=== PATIENT | female | born 1975 | race Two or more races ===

== ENCOUNTER 2025-02-04 12:06 | Emergency (ER) | payer MEDICAID ==
[~2025-02-04] VITALS: Ht 154.9 cm; Wt 94.3 kg
--- NOTE | 2025-02-04 13:24 | DVH ---
EXAM: CT HEAD WITHOUT CONTRAST INDICATION: HTN, dizzy TECHNIQUE: CT of the head without intravenous contrast. Radiation Dose : 1. Head: CT Dose: CTDI volume is 52 mGy. Dose-length product is 843.9 mGy*cm The dose indicators for CT are the volume Computed Tomography (CT) Dose Index (CTDIvol) and the Dose Length Product (DLP), and are measured in units of mGy and mGy-cm, respectively. These indicators are not patient dose, but values generated from the CT scanner acquisition factors. The report includes radiation exposure data for exposures received during this examination. COMPARISON: None FINDINGS: There is no evidence of acute intracranial hemorrhage, extra-axial collection, mass effect, midline s hift, herniation or hydrocephalus. The ventricles, sulci and cisterns are age appropriate. The ng-white differentiation is intact. The visualized paranasal sinuses and mastoid air cells are clear. The surrounding soft tissues and osseous structures are unremarkable. IMPRESSION: No acute intracranial abnormality. Radiation optimization: All CT scans at this facility use at least one of these dose optimization gabriel hniques: automated exposure control mA and/or kV adjustment per patient size (includes targeted exam s where dose is matched to clinical indication) or iterative reconstruction.
--- NOTE | 2025-02-04 13:25 | ED.PDOC ---
HPI Comments 49 y/o obese F, with a history of HTN, presents with c/o HTN, today. Patient is a Lithuanian speaker and endorses on being sent from an urgent clinic she was seen at earlier today after being found hypertensive. She reports on, initially, being seen at aforementioned facility for unprovoked onset of headache, face tingling sensation, left-upper back pain, and imbalance symptoms which started this morning, with no prior history of in the past. Patient informs on no recent falls, injuries, ailments, sick contact, stressors, strenuous activities, or any additional relevant history at this time of my assessment. Patient denies any chest pain, shortness of breath, vision changes, fever, chills, dizziness, or other associated symptoms or modifiers at this time. Patient was walked into the ER without any assistance and currently states that she feels generally well. Chief Complaint: High Blood Pressure Time Seen by MD: 12:50 Reviewed Notes: Nurses Notes, Medications, Allergies Allergies: Coded Allergies: NO KNOWN ALLERGIES (Unverified , 02/04/25) Information Source: Patient Mode of Arrival: Ambulatory Severity: Moderate Timing: Hours Duration: Since onset Prehospital treatment: Other (HTN medication) Past Medical History PAST MEDICAL HISTORY: HTN Past Medical History (Other): obesity Surgical History: Denies all surgeries MEDICARE SALES EXECUTIVE History: Denies all MEDICARE SALES EXECUTIVE Hx Family History Family History: Unknown Social History Smoker: Non-Smoker Alcohol: Denies ETOH Use Drugs: Denies Drug Use Lives In: Home All Other Systems: Reviewed and Negative (Comprehensive systems review obtained and negative except for what is stated in the HPI.) Physical Exam General Appearance: No Apparent Distress, Normal HEENT: Normal ENT Inspection, Pharynx Normal, TMs Normal Neck: Full Range of Motion, Non-Tender, Normal, Normal Inspection Respiratory: Chest Non-Tender, Lungs Clear, No Accessory Muscle Use, No Respiratory Distress, Normal Breath Sounds Cardiovascular: No Edema, No JVD, No Murmur, No Gallop, Normal Peripheral Pulses, Regular Rate/Rhythm Breast Exam: Deferred Gastrointestinal: No Organomegaly, Non Tender, No Pulsatile Mass, Normal Bowel Sounds, Soft Genitalia: Deferred Pelvic: Deferred Rectal: Deferred Extremities: No calf tenderness, Normal capillary refill, Normal inspection, Normal range of motion, Non-tender, No pedal edema Musculoskeletal : Apperance: Normal Neurologic: Alert, fleet administrator II-XII nml as Tested, No Motor Deficits, Normal Affect, Normal Mood, No Sensory Deficits, Other (Cranial nerves 2-12 intact, 5/5 strength to bilateral upper and lower extremities, sensation intact to light touch throughout, normal [id number], no pronator drift, ambulates with a steady gait without assistance, normal heel and toe walk, no dysdiadochokinesia, cranial nerves 2-12 intact, answering questions appropriately) Cerebellar Function: Normal Reflexes: NOT DONE Skin: Dry, Normal Color, Warm Lymphatic: No Adenopathy EKG EKG : Pulse Rate (adult): 62 [place]: Normal Cardiac Rhythm: NSR Block: None Hypertrophy: None ST: Normal Was a procedure done? Was a procedure done?: No CP Differential Dx Differential Diagnosis: Anxiety / Panic Attack, Heart Failure, PSVT, Renal Failure, N/A Differential Diagnosis: HTN Essential, HTN Encephalopathy, Other (HTN emergency ) Differential Diagnosis: Angina, Chest Wall Pain, Myocardial Infarction X-Ray, Labs, Meds, VS Vital Signs Date Time Temp Pulse Resp B/P (MAP) Pulse Ox O2 Delivery O2 Flow Rate FiO2 02/04/25 14:16 66 16 137/84 (101) 95 02/04/25 13:25 62 02/04/25 12:44 62 02/04/25 12:08 98.4 66 20 171/88 (115) 97 98.4 Lab Test 02/04/25 13:02 Range/Units White Blood Count 6.1 4.4-10.8 10^3/uL Red Blood Count 5.31 H 4.0-5.20 10^6/uL Hemoglobin 15.8 12.2-16.2 g/dL Hematocrit 46.5 H 36.0-46.0 % Mean Corpuscular Volume 87.6 80.0-100.0 fL Mean Corpuscular Hemoglobin 29.7 28.0-32.0 pg Mean Corpuscular Hemoglobin Concent 33.9 32.0-36.0 g/dL Red Cell Distribution Width 13.6 11.8-14.3 % Platelet Count 156 140-450 10^3/uL Mean Platelet Volume 10.3 6.9-10.8 fL Neutrophils (%) (Auto) 57.7 37.0-80.0 % Lymphocytes (%) (Auto) 32.8 10.0-50.0 % Monocytes (%) (Auto) 7.2 0.0-12.0 % Eosinophils (%) (Auto) 1.8 0.0-7.0 % Basophils (%) (Auto) 0.5 0.0-2.0 % Neutrophils # (Auto) 3.5 1.6-8.6 10 ^3/uL Lymphocytes # (Auto) 2.0 0.4-5.4 10 ^3/uL Monocytes # (Auto) 0.4 0-1.3 10 ^3/uL Eosinophils # (Auto) 0.1 0-0.8 10 ^3/uL Basophils # (Auto) 0 0-0.2 10 ^3/uL Nucleated Red Blood Cells 0.2 % Sodium Level 144 136-145 mmol/L Potassium Level 4.6 3.5-5.1 mmol/L Chloride Level 110 H 98-107 mmol/L Carbon Dioxide Level 28 20-31 mmol/L Anion Gap 6 5-15 Blood Urea Nitrogen 10 9-23 mg/dL Creatinine 0.81 0.550-1.02 mg/dL Glomerular Filtration Rate Calc 89 >90 mL/min BUN/Creatinine Ratio 12.3 10.0-20.0 Serum Glucose 85 74-106 mg/dL Calcium Level 9.7 8.7-10.4 mg/dL Troponin I High Sensitivity < 3 L </=34 ng/L X-Ray, Labs, Meds, VS Comment 49-year-old female sent here today for evaluation of her hypertension and additional symptoms as above. On arrival to ER, vital signs notable for hypertension with systolic blood pressure in the 170s however that resolved without any interventions on recheck. Physical exam as above without any acute findings including a normal neurologic exam. Labs overall reassuring. Troponin negative. EKG without evidence of acute ischemia. CT head scan without any acute findings. Given patient was overall normal neurologic exam and overall reassuring workup, patient was provided with reassurance and informed of her findings and stated that she felt much better and wanted to go home. I felt that this was appropriate as the patient has a primary care doctor she can follow up within 2-3 days for re-evaluation. I provided the patient was strict return precautions for return of symptoms, headache, numbness, weakness, fevers, nausea/vomiting, chest pain, respiratory distress, or any other new or concerning symptoms. Patient was discharged home in stable condition ambulating with a steady gait without any assistance and in no distress. Time of 1ST Reevaluation: 13:20 Reevaluation 1ST: Improved Time of 2ND Reevaluation: 14:56 Reevaluation 2ND: Resolved Patient Education/Counseling: Diagnosis, Treatment Family Education/Counseling: No Family Present Additional Information Previous medical encounters reviewed: N/A The following tests were ordered, and results were reviewed by me: BMP, CBC, EKG, troponin, CT head w/o contrast Additional Information was gathered from interviewing the following independent historians: N/A I reviewed and agreed with the following test results read by other providers: CT head w/o contrast I discussed treatment and results with medical personnel and: Patient Departure 1 Departure Time of Disposition: 15:20 Impression: Primary Impression: Hypertension Disposition: 01 HOME / SELF CARE / HOMELESS Condition: Stable Critical Care Note Critical Care Time?: No Stability Stability form required: No Heart Score Heart Score: Heart Score Response (Comments) Value History N/A 0 EKG N/A 0 Age N/A 0 Risk Factors N/A 0 Troponin N/A 0 Total 0 FRITZ JENNINGS Feb 04, 2025 13:25 ELADIO PIPER MD Feb 04, 2025 15:21
[2025-02-04 13:40] LABS: Basophils # (auto) 0 10 ^3/uL (0-0.2); Basophils % (auto) 0.5 % (0.0-2.0); Eosinophils # (auto) 0.1 10 ^3/uL (0-0.8); Eosinophils % (auto) 1.8 % (0.0-7.0); Hematocrit 46.5 % (36.0-46.0); Hemoglobin 15.8 g/dL (12.2-16.2); Lymphocytes % (auto) 32.8 % (10.0-50.0); Mean Corpuscular Hemoglobin 29.7 pg (28.0-32.0); Mean Corpuscular Hgb Conc. 33.9 g/dL (32.0-36.0); Mean Corpuscular Volume 87.6 fL (80.0-100.0); Monocytes # (auto) 0.4 10 ^3/uL (0-1.3); Monocytes % (auto) 7.2 % (0.0-12.0); Neutrophils # (auto) 3.5 10 ^3/uL (1.6-8.6); Neutrophils % (auto) 57.7 % (37.0-80.0); Nucleated Red Blood Cells % 0.2 %; Platelet Count (auto) 156 10^3/uL (140-450); Red Blood Cells 5.31 10^6/uL (4.0-5.20); Red Cell Distribution Width 13.6 % (11.8-14.3); White Blood Cell 6.1 10^3/uL (4.4-10.8)
[2025-02-04 13:43] LABS: Potassium 4.6 mmol/L (3.5-5.1); Sodium 144 mmol/L (136-145)
[2025-02-04 13:44] LABS: Anion Gap 6 (5-15); Calcium 9.7 mg/dL (8.7-10.4); Carbon Dioxide 28 mmol/L (20-31)
[2025-02-04 13:49] LABS: BUN/Creatinine Ratio 12.3 (10.0-20.0); Blood Urea Nitrogen 10 mg/dL (9-23); Glucose 85 mg/dL (74-106)
[2025-02-04 13:51] LABS: Chloride 110 mmol/L (98-107)
--- NOTE | 2025-02-04 15:20 | ECG ---
[facility] Test Date: 2025-02-04 Test Time: 12:44:28 Pat Name: SAHIL MEADEDepartment: ER Room: Gender: F Event Host: : 1975 Requested By: ELADIO PIPER Order Number: [id number] Reading MD: Measurements Intervals [place] Rate: 62 P: 58 [place]: 171 QRS: 53 QRSD: 101 T: 60 QT: 450 QTc: 457 Interpretive Statements Sinus rhythm Please click the below link to view image of tracing.
[2025-02-04 16:14] VITALS: BP 143/79; PULSE 64; RESP 18; TEMP 98.6; O2SAT 95
== END 2025-02-04 16:17 | disposition home or self-care (01) ==
LOC: ER 12:06
DX: I10 Essential (primary) hypertension (principal); E66.9 Obesity, unspecified; R51.9 Headache, unspecified
CPT/HCPCS: 36415; 70450; 80048; 84484; 85025; 93005

== ENCOUNTER 2025-06-28 21:52 | Inpatient (IN) | payer MEDICAID ==
[~2025-06-28] VITALS: Ht 152.4 cm; Wt 112.0 kg
--- NOTE | 2025-06-28 23:12 | ED.PDOC ---
HPI Comments 49 year old female presents to the with a chief complaint of chest pain onset 2 days. Patient states she has been experiencing chest pain radiates to back, 06/05, for the past 2 days as well as facial numbness/tingling, headache. For the past 2 weeks, she has been experiencing bilateral feet swelling. Patient mentions she had a CVA about 1 month ago, was hospitalized in [place], was discharged with a prescription of Aspirin and 2 other medications, does not recall which ones. PMHx CVA, HTN, HLD. Denies blurred vision, shortness of breath, fever, chills, abdominal pain, nausea, vomiting, diarrhea. No other symptoms or modifying factors present at this time. Chief Complaint: Chest Pain Time Seen by MD: 23:00 Reviewed Notes: Medications, Allergies Allergies: Coded Allergies: NO KNOWN ALLERGIES (Unverified , 02/04/25) Information Source: Patient Mode of Arrival: Ambulatory Severity: Moderate Timing: Days Duration: Since onset Prehospital treatment: None Location: Chest (L) Radiation: Back Quality: Pressure Onset: At Rest Cardiac Risk Factors: Hyperlipidemia, HTN PE Risk Factors: None History of: Aspirin Modifying Factors: Nothing Associated Signs and Symptoms: Back Pain Past Medical History PAST MEDICAL HISTORY: CVA, High Lipids, HTN Surgical History: Denies all surgeries SIDE STITCHER History: Denies all SIDE STITCHER Hx Family History Family History: Unknown Social History Smoker: Non-Smoker Alcohol: Denies ETOH Use Drugs: Denies Drug Use Lives In: Home Constitutional: denies: chills, diaphoresis, fatigue, fever, malaise, sweats, weakness, others EENTM: denies: blurred vision, double vision, ear bleeding, ear discharge, ear drainage, ear pain, ear ringing, eye pain, eye redness, hearing loss, mouth pain, mouth swelling, nasal discharge, nose bleeding, nose congestion, nose pain, photophobia, tearing, throat pain, throat swelling, voice changes, others Respiratory: denies: cough, hemoptysis, orthopnea, SOB at rest, shortness of breath, SOB with excertion, stridor, wheezing, others Cardiovascular: reports: chest pain; denies: dizzy spells, diaphoresis, Dyspnea on exertion, edema, irregular heart beat, left arm pain, lightheadedness, palpitations, PND, syncope, others Gastrointestinal: denies: abdomen distended, abdominal pain, blood streaked bowels, constipated, diarrhea, dysphagia, difficulty swallowing, hematemesis, melena, nausea, poor appetite, poor fluid intake, rectal bleeding, rectal pain, vomiting, others Genitourinary: denies: abnormal vagina bleeding, burning, dyspareunia, dysuria, flank pain, frequency, hematuria, incontinence, pain, , vagina discharge, urgency, others Neurological: reports: headache; denies: dizziness, fainting, left sided numbness, left sided weakness, numbness, paresthesia, pre-existing deficit, right sided numbness, right sided weakness, seizure, speech problems, tingling, tremors, weakness, others Musculoskeletal: reports: back pain, others (BLE swelling); denies: gout, joint pain, joint swelling, muscle pain, muscle stiffness, neck pain Integumetry: denies: bruises, change in color, change in hair/nails, dryness, laceration, lesions, lumps, rash, wounds, others Allergic/Immunocompromised: denies: Difficulty Healing, Frequent Infections, Hives, Itching, others Hematologic/Lymphatic: denies: anemia, blood clots, easy bleeding, easy bruising, swollen glands, others Endocrine: denies: excessive hunger, excessive sweating, excessive thirst, excessive urination, flushing, intolerance to cold, intolerance to heat, unexplained weight gain, unexplained weight loss, others Psychiatric: denies: anxiety, bipolar disorder, depression, hopeless, panic disorder, schizophrenia, sleepless, suicidal, others All Other Systems: Reviewed and Negative Physical Exam General Appearance: Normal HEENT: Normal ENT Inspection, Pharynx Normal, TMs Normal Neck: Full Range of Motion, Non-Tender, Normal, Normal Inspection Respiratory: Chest Non-Tender, Lungs Clear, No Accessory Muscle Use, No Respiratory Distress, Normal Breath Sounds Cardiovascular: No Edema, No JVD, No Murmur, No Gallop, Normal Peripheral Pulses, Regular Rate/Rhythm Breast Exam: Deferred Gastrointestinal: No Organomegaly, Non Tender, No Pulsatile Mass, Normal Bowel Sounds, Soft Genitalia: Deferred Pelvic: Deferred Rectal: Deferred Extremities: No calf tenderness, Normal capillary refill, Normal inspection, Normal range of motion, Non-tender, No pedal edema Musculoskeletal : Apperance: Normal Neurologic: Alert, field auditor II-XII nml as Tested, No Motor Deficits, Normal Affect, Normal Mood, No Sensory Deficits Cerebellar Function: Normal Reflexes: Normal Skin: Dry, Normal Color, Warm Lymphatic: No Adenopathy Was a procedure done? Was a procedure done?: No CP Differential Dx Differential Diagnosis: MAT, UT, PAC's Differential Diagnosis: HTN Essential, HTN Accelerated Differential Diagnosis: Gastritis, Myocardial Infarction, Pericarditis X-Ray, Labs, Meds, VS Vital Signs Date Time Temp Pulse Resp B/P (MAP) Pulse Ox O2 Delivery O2 Flow Rate FiO2 06/28/25 23:04 69 06/28/25 22:17 98.8 73 16 150/89 94 98.8 06/28/25 22:07 70 Lab Test 06/29/25 00:20 06/28/25 23:38 Range/Units Troponin I High Sensitivity < 3 L < 3 L </=34 ng/L White Blood Count 7.5 4.4-10.8 10^3/uL Red Blood Count 5.11 4.0-5.20 10^6/uL Hemoglobin 15.3 12.2-16.2 g/dL Hematocrit 43.7 36.0-46.0 % Mean Corpuscular Volume 85.6 80.0-100.0 fL Mean Corpuscular Hemoglobin 30.0 28.0-32.0 pg Mean Corpuscular Hemoglobin Concent 35.1 32.0-36.0 g/dL Red Cell Distribution Width 13.4 11.8-14.3 % Platelet Count 146 140-450 10^3/uL Mean Platelet Volume 9.0 6.9-10.8 fL Neutrophils (%) (Auto) 61.0 37.0-80.0 % Lymphocytes (%) (Auto) 25.9 10.0-50.0 % Monocytes (%) (Auto) 9.7 0.0-12.0 % Eosinophils (%) (Auto) 2.4 0.0-7.0 % Basophils (%) (Auto) 1.0 0.0-2.0 % Neutrophils # (Auto) 4.6 1.6-8.6 10 ^3/uL Lymphocytes # (Auto) 1.9 0.4-5.4 10 ^3/uL Monocytes # (Auto) 0.7 0-1.3 10 ^3/uL Eosinophils # (Auto) 0.2 0-0.8 10 ^3/uL Basophils # (Auto) 0.1 0-0.2 10 ^3/uL Nucleated Red Blood Cells 0.0 % Sodium Level 142 136-145 mmol/L Potassium Level 3.8 3.5-5.1 mmol/L Chloride Level 107 98-107 mmol/L Carbon Dioxide Level 27 20-31 mmol/L Anion Gap 8 5-15 Blood Urea Nitrogen 10 9-23 mg/dL Creatinine 0.65 0.550-1.02 mg/dL Glomerular Filtration Rate Calc 109 >90 mL/min BUN/Creatinine Ratio 15.4 10.0-20.0 Serum Glucose 112 H 74-106 mg/dL Calcium Level 8.6 L 8.7-10.4 mg/dL Time of 1ST Reevaluation: 23:30 Reevaluation 1ST: Unchanged Patient Education/Counseling: Diagnosis, Treatment, Prognosis Family Education/Counseling: No Family Present SEPSIS Sepsis Screen Date sepsis recognized/suspect: Jun 28, 2025 Time Sepsis recognized/suspect: 2220 Recent Procedure: No On Antibiotic Therapy: No Respiratory Rate >20: No Heart Rate >90: No Temp<36 C (96.8 F) or >38.3 C: No SBP <90 or MAP <65 mmHG: No New Acute Mental Status Change: No Is the patient on CPAP, BIPAP,: No Physician Orders Electrocardigram (06/28/25 22:13) Electrocardigram (06/28/25 23:13) Electrocardigram (06/29/25 01:13) Chest Portable (06/28/25 22:49) Troponin-I Hs (06/29/25 01:49) Vital Signs Date Time Temp Pulse Resp B/P (MAP) Pulse Ox O2 Delivery O2 Flow Rate FiO2 06/28/25 23:04 69 06/28/25 22:17 98.8 73 16 150/89 94 98.8 06/28/25 22:07 70 Laboratory Tests Test 06/28/25 23:38 White Blood Count 7.5 10^3/uL (4.4-10.8) Departure 1 Departure Time of Disposition: 00:48 (Patient presented with chest pain that was concerning for possible STEMI, ACS, PE, Pneumonia, Muscle Strain, COPD, Dissection. Data: 1. I ordered and reviewed the result of at least 3 labs including a CBC, BMP, and Troponin. 2. I independently interpreted the following tests: EKG which shows sinus arrhythmia and Chest X-ray which shows benign chest.Risk:This patient has a high risk of morbidity due to further diagnostic testing or treatment and may suffer from an acute cardiac or respiratory disorder. Workup reveals concern for ACS and patient should be admitted for further workup and possible expert consultation. ) Impression: Primary Impression: Acute chest pain Additional Impression: Shortness of breath Disposition: ADMITTED INPATIENT Admit to: Med Surg Condition: Serious Critical Care Note Critical Care Time?: Yes Critical care comment: Acute chest pain Authorized and Performed by: Merced Daniels MD Total critical care time: Approximately 36 minutes Due to a high probability of clinically significant, life threatening deterioration, the patient required my highest level of preparedness to intervene emergently and I personally spent this critical care time directly and personally managing the patient. This critical care time included obtaining a history; examining the patient; pulse oximetry; ordering and review of studies; arranging urgent treatment with development of a management plan; evaluation of patient's response to treatment; frequent reassessment; and, discussions with other providers. This critical care time was performed to assess and manage the high probability of imminent, life-threatening deterioration that could result in multi-organ failure. It was exclusive of separately billable procedures and treating other patients and teaching time. Please see my other sections and the rest of the note for further information on patient assessment and treatment. Stability Stability form required: No Heart Score Heart Score: Heart Score Response (Comments) Value History Moderate Suspicious 1 EKG Repolarization Disturb 1 Age 45-64 1 Risk Factors 1 or 2 risk factors 1 Troponin 1-2 x's Normal limit 1 Total 5 I personally scribed for MERCED DANIELS MD ([email or web address]) on 06/28/25 at 23:12. Electronically submitted by Luana Leon ([email or web address]). MERCED DANIELS MD Jun 28, 2025 23:12
--- NOTE | 2025-06-28 23:19 | DVH ---
CLINICAL HISTORY: cp TECHNIQUE: Single view of the chest was obtained. COMPARISON: XY CHEST XRAY 1 VIEW on DOS: 01/28/23 FINDINGS: The heart size and pulmonary vasculature are normal. The lungs are clear. IMPRESSION: NO ACUTE CARDIOPULMONARY PROCESS.
[2025-06-28 23:51] LABS: Hematocrit 43.7 % (36.0-46.0); Hemoglobin 15.3 g/dL (12.2-16.2); Mean Corpuscular Hemoglobin 30.0 pg (28.0-32.0); Mean Corpuscular Volume 85.6 fL (80.0-100.0); Nucleated Red Blood Cells % 0.0 %
[2025-06-29 00:04] LABS: Potassium 3.8 mmol/L (3.5-5.1); Sodium 142 mmol/L (136-145)
[2025-06-29 00:05] LABS: Anion Gap 8 (5-15); Carbon Dioxide 27 mmol/L (20-31)
[2025-06-29 00:06] LABS: Calcium 8.6 mg/dL (8.7-10.4); Chloride 107 mmol/L (98-107)
[2025-06-29 00:10] LABS: BUN/Creatinine Ratio 15.4 (10.0-20.0); Blood Urea Nitrogen 10 mg/dL (9-23)
[2025-06-29 00:18] LABS: Glucose 112 mg/dL (74-106)
[2025-06-29] MEDS ORDERED: MORPHINE SULFATE INJ 2 MG/ml SYRG IV PRN (01:30)
[2025-06-29] MEDS ORDERED: NITROGLYCERIN 0.4 MG SL TAB SL PRN (01:30)
[2025-06-29] MEDS ORDERED: ONDANSETRON HCL 4 MG/2 ML VIAL IV PRN (01:30)
[2025-06-29] MEDS ORDERED: DOCUSATE SOD 100 MG CAP PO PRN (01:30)
[2025-06-29 01:59] LABS: INR 0.93 (0.9-1.15); Prothrombin Time 9.9 sec (9.3-11.8)
[2025-06-29 02:01] LABS: Alanine Aminotransferase 33.0 U/L (7-40); Albumin 3.8 g/dL (3.2-4.8); Alkaline Phosphatase 109.0 U/L (46-116); Bilirubin, Direct 0.1 mg/dL (<0.3); Bilirubin, Total 0.6 mg/dL (0.2-1.0); Cholesterol 199.0 mg/dL (< 200); HDL Cholesterol 54.0 mg/dL (40-59); Total Protein 6.7 g/dL (5.7-8.2)
[2025-06-29 02:04] LABS: Triglycerides 286.0 mg/dL (< 150)
--- NOTE | 2025-06-29 02:40 | ECG ---
[facility] Test Date: 2025-06-28 Test Time: 22:07:26 Pat Name: SAHIL MEADEDepartment: ED Room: 0251T Gender: F Profiling Machine Operator: ANGELIKA : 1975 Requested By: ELENA SANTOS Order Number: [id number] Reading MD: Connor Chavez Measurements Intervals [place] Rate: 70 P: 62 [place]: 158 QRS: 64 QRSD: 93 T: 81 QT: 431 QTc: 466 Interpretive Statements Sinus rhythm Electronically Signed On 06-30-2025 17:01:45 PDT by Connor Chavez Please click the below link to view image of tracing.
[2025-06-29] MEDS ORDERED: ATOR20TA50 PO (03:41)
[2025-06-29] MEDS ORDERED: GABA-1250 PO (03:41)
[2025-06-29] MEDS ORDERED: ASPI-325 PO (03:41)
[2025-06-29] MEDS ORDERED: LOSA-535 PO (03:41)
[2025-06-29] MEDS ORDERED: AMLO1TAB23 PO (03:41)
[2025-06-29] MEDS ORDERED: CHLO50TA PO (03:41)
[2025-06-29] MEDS ORDERED: ATOR-47 PO (03:41)
[2025-06-29] MEDS ORDERED: PANT40T PO (03:41)
[2025-06-29 05:15] VITALS: BP 150/80; PULSE 60; RESP 17; TEMP 97.5; O2SAT 94
[2025-06-29 05:33] LABS: Hematocrit 43.7 % (36.0-46.0); Hemoglobin 15.3 g/dL (12.2-16.2); Mean Corpuscular Hemoglobin 30.2 pg (28.0-32.0); Mean Corpuscular Volume 86.4 fL (80.0-100.0); Nucleated Red Blood Cells % 0.1 %
[2025-06-29 05:39] LABS: Alanine Aminotransferase 30 U/L (7-40); Alkaline Phosphatase 106 U/L (46-116); Calcium 8.8 mg/dL (8.7-10.4); Carbon Dioxide 27 mmol/L (20-31)
[2025-06-29 05:40] LABS: Albumin 4.2 g/dL (3.2-4.8); Anion Gap 7 (5-15); BUN/Creatinine Ratio 20.3 (10.0-20.0); Bilirubin, Total 0.6 mg/dL (0.2-1.0); Blood Urea Nitrogen 14 mg/dL (9-23); Chloride 108 mmol/L (98-107); Glucose 100 mg/dL (74-106); Potassium 4.2 mmol/L (3.5-5.1); Sodium 142 mmol/L (136-145); Total Protein 7.2 g/dL (5.7-8.2)
[2025-06-29] MEDS ORDERED: VILA40TA2 PO (08:38)
[2025-06-29 09:00] VITALS: BP 135/74; PULSE 64; RESP 20; TEMP 97.2; O2SAT 94
--- NOTE | 2025-06-29 09:21 | DVHHPRES ---
History of Present Illness Resident Creating Document: MAIK MEI RESIDENT History of Present Illness Avani Bhandari is a Occitan-speaking 49-year-old female with past medical history of hypertension, hyperlipidemia, history of TIA, who came to the ED with chief complaints of 8/10 chest pain which is intermittent, radiating to the back since the past 2 days as well as facial numbness, tingling associated with headache and 2 weeks of leg swelling which is painful. Denies any blurred vision, nausea, vomiting, diarrhea, abdominal pain, fever chills, shortness of breath. States that she had a CVA about 1-1/2 month ago. She also complained of bad taste in her mouth in the morning, heartburn. Echo ordered. Patient admitted for further for further management. Past surgical history: Denies Family history: Reviewed noncontributory Personal history: Denies smoking, drinking, drug use Lives with: Family PCP: Dr. Washburn Review of Systems Constitutional: Yes: Chills, Sweats; No: Fever, Weakness, Malaise, Other Eyes: No: Pain, Vision change, Conjunctivae inflammation, Eyelid inflammation, Other, Redness ENT: No: Ear pain, Ear discharge, Nose pain, Nose discharge, Nose congestion, Mouth pain, Mouth swelling, Throat pain, Throat swelling, Other Respiratory: Shortness of breath; No: Cough, Dry, SOB with excertion, Wheezing, Hemoptysis, Pleuritic Pain, Sputum, Wheezing, Other Cardiovascular: Chest Pain; No: Palpitations, Orthopnea, Paroxysmal Noc. Dyspnea, Edema, Lt Headedness, Other Gastrointestinal: No: Nausea, Vomiting, Abdominal Pain, Diarrhea, Constipation, Melena, Hematochezia, Other Genitourinary: No Dysuria, No Frequency, No Incontinence, No Hematuria, No Retention, No Other Musculoskeletal: No: other, neck pain, shoulder pain, arm pain, back pain, hand pain, leg pain, foot pain Skin: No: Rash, Lesions, Jaundice, Bruising, Other Neurological: No: Weakness, Numbness, Incoordination, Change in speech, Confusion, Seizures, Other Allergies: Coded Allergies: NO KNOWN ALLERGIES (Unverified , 02/04/25) Medications Current Medications Medications Dose Ordered Sig/Justina Route Start Time Stop Time Status Last Admin Dose Admin Acetaminophen/ Hydrocodone Bitart 1 tab Q4HP PRN PO 06/29/25 01:30 Ondansetron HCl 4 mg Q4HP PRN IV 06/29/25 01:30 Docusate Sodium 100 mg BIDPRN PRN PO 06/29/25 01:30 Nitroglycerin 0.4 mg Q5MINP PRN SL 06/29/25 01:30 Aspirin 81 mg DAILY PO 06/29/25 10:00 UNV Atorvastatin Calcium 40 mg HS PO 06/29/25 22:00 UNV Amlodipine Besylate 10 mg DAILY PO 06/29/25 08:45 UNV Buspirone HCl 15 mg Q12HR PO 06/29/25 10:00 UNV Loratadine 10 mg HS PO 06/29/25 22:00 UNV Patient Own Medication 1 DAILY PO 06/29/25 10:00 UNV Exam Vital Signs Vital Signs Date Time Temp Pulse Resp B/P (MAP) Pulse Ox O2 Delivery O2 Flow Rate FiO2 06/29/25 05:15 97.5 60 17 150/80 (103) 94 97.5 Exam General: Patient alert and oriented in person, place and time. Patient following commands. HEENT: Normocephalic, atraumatic, moist mucous membranes Respiratory/pulmonary: Clear lungs bilaterally, vesicular murmurs present in almost all lung ortiz, no associated crackles or wheezes. Cardiovascular: Chest tenderness in substernal area on palpation, radiating to the back Abdomen: Abdomen nondistended, there is no pain to palpation in any of the abdominal quadrants, no palpable masses. Extremities: There is no peripheral edema present at the lower extremities. Peripheral Pulses: 3+ Radial (R). 3+ Radial (L). 3+ Dorsalis pedis (R). 3+ Dorsalis pedis(L) Skin: No rashes or pruritus, there is no sacral edema present at this time. Neurological: Intact cranial nerves with no focal neurologic deficits Labs/Xrays Labs Test 06/29/25 04:51 06/29/25 00:20 06/28/25 23:38 Range/Units White Blood Count 7.2 4.4-10.8 10^3/uL Red Blood Count 5.06 4.0-5.20 10^6/uL Hemoglobin 15.3 12.2-16.2 g/dL Hematocrit 43.7 36.0-46.0 % Mean Corpuscular Volume 86.4 80.0-100.0 fL Mean Corpuscular Hemoglobin 30.2 28.0-32.0 pg Mean Corpuscular Hemoglobin Concent 35.0 32.0-36.0 g/dL Red Cell Distribution Width 13.4 11.8-14.3 % Platelet Count 144 140-450 10^3/uL Mean Platelet Volume 9.5 6.9-10.8 fL Neutrophils (%) (Auto) 59.3 37.0-80.0 % Lymphocytes (%) (Auto) 27.8 10.0-50.0 % Monocytes (%) (Auto) 10.1 0.0-12.0 % Eosinophils (%) (Auto) 2.5 0.0-7.0 % Basophils (%) (Auto) 0.3 0.0-2.0 % Neutrophils # (Auto) 4.3 1.6-8.6 10 ^3/uL Lymphocytes # (Auto) 2.0 0.4-5.4 10 ^3/uL Monocytes # (Auto) 0.7 0-1.3 10 ^3/uL Eosinophils # (Auto) 0.2 0-0.8 10 ^3/uL Basophils # (Auto) 0 0-0.2 10 ^3/uL Nucleated Red Blood Cells 0.1 % Sodium Level 142 136-145 mmol/L Potassium Level 4.2 3.5-5.1 mmol/L Chloride Level 108 H 98-107 mmol/L Carbon Dioxide Level 27 20-31 mmol/L Anion Gap 7 5-15 Blood Urea Nitrogen 14 9-23 mg/dL Creatinine 0.69 0.550-1.02 mg/dL Glomerular Filtration Rate Calc 107 >90 mL/min BUN/Creatinine Ratio 20.3 H 10.0-20.0 Serum Glucose 100 74-106 mg/dL Calcium Level 8.8 8.7-10.4 mg/dL Total Bilirubin 0.6 0.2-1.0 mg/dL Aspartate Amino Transferase (AST) 32 13-40 U/L Alanine Aminotransferase (ALT) 30 7-40 U/L Alkaline Phosphatase 106 46-116 U/L C-Reactive Protein High Sensitivity 0.43 <1.0 mg/dL Total Protein 7.2 5.7-8.2 g/dL Albumin 4.2 3.2-4.8 g/dL Troponin I High Sensitivity < 3 L </=34 ng/L Prothrombin Time 9.9 9.3-11.8 sec Prothrombin Time INR 0.93 0.9-1.15 Direct Bilirubin 0.1 <0.3 mg/dL B-Type Natriuretic Peptide 21.36 0-100 pg/mL Triglycerides Level 286 H < 150 mg/dL Cholesterol Level 199 < 200 mg/dL LDL Cholesterol 120 H < 100 mg/dL HDL Cholesterol 54 40-59 mg/dL SEPSIS Sepsis Screen Date sepsis recognized/suspect: Jun 28, 2025 Time Sepsis recognized/suspect: 2220 Recent Procedure: No On Antibiotic Therapy: No Respiratory Rate >20: No Heart Rate >90: No Temp<36 C (96.8 F) or >38.3 C: No SBP <90 or MAP <65 mmHG: No New Acute Mental Status Change: No Is the patient on CPAP, BIPAP,: No Physician Orders Admit (06/29/25 01:22) Allergies (06/29/25:22) Code Status (06/29/25 01:22) Hydrocodone-Acet 5/325mg Tab ([place] 5/32 (06/29/25 01:30) Ondansetron Hcl (Zofran) (06/29/25 01:30) Docusate Sodium Capsule (Colace Capsule) (06/29/25 01:30) Npo (Nothing By Mouth) Diet (06/29/25 Breakfast) Condition: Serious (06/29/25 01:22) Bedrest With Bathroom Privileg (06/29/25:22) Nitroglycerin Sublingual (Ntrostat Subli (06/29/25 01:30) Oxygen By Nasal Cannula (06/29/25:22) Stat Ekg For Chest Pain (06/29/25:22) Notify Md Of Changes From Base (06/29/25:22) Communications Administrator For 24 Hours (06/29/25:22) Emergency Dysrhythmia Protocol (06/29/25:22) Rhythm Strips Once Every Shift (06/29/25:22) Hemoglobin A1c (06/29/25 08:13) Thyroid Stimulating Hormone (06/29/25 08:13) Vitamin B12 (06/29/25 08:13) Vitamin D, 25-Hydroxy (06/29/25 08:13) Folate (Folic Acid) (06/29/25 08:13) Drug Screen (06/29/25 08:21) Urinalysis (06/29/25 08:21) Echo 2d Mode Cardiac Dop (06/29/25 08:21) Erythrocyte Sedimentation Rate (06/29/25 08:21) Communication Order (06/29/25 08:21) Aspirin Tablet (06/29/25 10:00) Atorvastatin (Lipitor) (06/29/25 22:00) Amlodipine Tablet (Norvasc Tablet) (06/29/25 08:45) Buspirone Hcl Tablet (Buspar Tablet) (06/29/25 10:00) Loratadine Tablet (Claritin Tablet) (06/29/25 22:00) Covid19 Antigen Beverley (06/29/25 ) Rapid Influenza A&B (06/29/25 08:35) Patients Own Medication (06/29/25 10:00) Vital Signs Date Time Temp Pulse Resp B/P (MAP) Pulse Ox O2 Delivery O2 Flow Rate FiO2 06/29/25 05:15 97.5 60 17 150/80 (103) 94 97.5 06/29/25 01:08 68 Laboratory Tests Test 06/28/25 23:38 06/29/25 04:51 White Blood Count 7.5 10^3/uL (4.4-10.8) 7.2 10^3/uL (4.4-10.8) Assessment/Plan Assessment/Plan # chest pain, rule out ACS # history of possible CHF : Ordered echo, ESR , CRP # resistant hypertension: Amlodipine + losartan + chlorthalidone # questionable CAD # history of TIA: Continue home meds # history of dyslipidemia: Continue atorvastatin # mild cardiomegaly: Echo ordered # grade 3 obesity : BMI 43.5 on GLP 1 inhibitor # seasonal allergy # History of anxiety disorder: Continue home meds #? ADHD #? Schizophrenia # Vitamin-D deficiency PPI prophylaxis: Pantoprazole 40 mg DVT prophylaxis: not indicated Goals of care addressed with the patient for more than 27 minutes: Full code status Case discussed with Dr. Mc , patient and nurse Plan discussed with: Patient My Orders Orders - MAIK MEI RESIDENT Procedure Category Date Status Time Admit ADMIT 06/29/25 Transmitted 01:22 Allergies YONG 06/29/25 In Process 01:22 Code Status CODE 06/29/25 Transmitted 01:22 Hydrocodone-Acet PHA 06/29/25 In Process 5/325mg Tab ([place] 01:30 Ondansetron Hcl PHA 06/29/25 In Process (Zofran) 01:30 Docusate Sodium PHA 06/29/25 In Process Capsule (Colace 01:30 Npo (Nothing By DIET 06/29/25 Transmitted Mouth) Diet Breakfast Condition: Serious YONG 06/29/25 In Process 01:22 Bedrest With Bathroom [facility] 06/29/25 In Process Privileg 01:22 Nitroglycerin PHA 06/29/25 In Process Sublingual (Ntrostat 01:30 Oxygen By Nasal RT 06/29/25 Transmitted Cannula 01:22 Stat Ekg For Chest [facility] 06/29/25 In Process Pain 01:22 Notify Md Of Changes [facility] 06/29/25 In Process From Base 01:22 Communications Administrator For [facility] 06/29/25 In Process 24 Hours 01:22 Emergency Dysrhythmia [facility] 06/29/25 In Process Protocol 01:22 Rhythm Strips Once [facility] 06/29/25 In Process Every Shift 01:22 Date of Service: Jun 29, 2025 Billing Provider: DICK MC MD Common Visit Codes: [id number] INP/OBS CARE (HIGH) Secondary Visit Codes: [id number] CARE PLAN 30 MINUTES MAIK MEI RESIDENT Jun 29, 2025 09:21
[2025-06-29] MEDS: VILAZODONE 40 MG PO SCH (10:00)
[2025-06-29] MEDS: ENOXAPARIN SOD 40 MG/0.4 ML SYRINGE SC SCH (10:30)
[2025-06-29] MEDS: PANTOPRAZOLE 40 MG TAB PO SCH (10:33)
--- NOTE | 2025-06-29 10:40 | DVH ---
Bilateral lower extremity venous duplex Clinical History: Bilateral leg swelling, chest pain, shortness of Comparison: None Findings: Duplex Doppler evaluation of the deep venous systems of both lower extremities from the common femora l veins to the popliteal veins including color Doppler and spectral/pulsed waveform analysis was perf ormed. RIGHT SIDE: The common femoral vein demonstrates appropriate compressibility and waveform variability. There is compressibility/patency of the great saphenous vein at the proximal thigh. The femoral vein demonstrates appropriate compressibility and waveform variability. The deep femoral vein demonstrates appropriate compressibility and waveform variability. The popliteal vein demonstrates appropriate compressibility and waveform variability. There is normal compressibility at the tibioperoneal trunk. LEFT SIDE: The common femoral vein demonstrates appropriate compressibility and waveform variability. There is compressibility/patency of the great saphenous vein at the proximal thigh. The femoral vein demonstrates appropriate compressibility and waveform variability. The deep femoral vein demonstrates appropriate compressibility and waveform variability. The popliteal vein demonstrates appropriate compressibility and waveform variability. There is normal compressibility at the tibioperoneal trunk. 3.4 cm left Mcclendon's cyst. IMPRESSION: No right or left femoropopliteal venous thrombosis. If clinical concern/symptoms persist or worsen, short-interval follow-up study is suggested. END IMPRESSION:
[2025-06-29 13:00] VITALS: BP 131/68; PULSE 63; RESP 20; TEMP 97.2; O2SAT 91
--- NOTE | 2025-06-29 14:05 | ECG ---
[facility] Test Date: 2025-06-29 Test Time: 01:08:47 Pat Name: SAHIL MEADEDepartment: [facility] ED Room: 0251T Gender: F Rural Car[employer] Associate: SAMI : 1975 Requested By: ELENA SANTOS Order Number: [id number] Reading MD: Connor Chavez Measurements Intervals [place] Rate: 68 P: 46 NC: 159 QRS: 60 QRSD: 99 T: 71 QT: 374 QTc: 398 Interpretive Statements Sinus rhythm Anteroseptal infarct, age indeterminate ST elevation, consider inferior injury Electronically Signed On 06-30-2025 17:01:59 PDT by Connor Chavez Please click the below link to view image of tracing.
--- NOTE | 2025-06-29 14:05 | ECG ---
[facility] Test Date: 2025-06-28 Test Time: 23:04:31 Pat Name: SAHIL MEADEDepartment: ED Room: 0251T Gender: F [employer] Dipper: SAMI : 1975 Requested By: ELENA SANTOS Order Number: [id number] Reading MD: Connor Chavez Measurements Intervals [place] Rate: 69 P: 62 MT: 162 QRS: 64 QRSD: 94 T: 83 QT: 424 QTc: 455 Interpretive Statements Sinus rhythm Nonspecific T abnormalities, lateral leads Electronically Signed On 06-30-2025 17:01:52 PDT by Connor Chavez Please click the below link to view image of tracing.
[2025-06-29] MEDS: ERGOCALCIFEROL 50,000 UNIT(1.25MG) CAP PO SCH (14:53)
--- NOTE | 2025-06-29 15:26 | DVHPNRES ---
Progress Note Date Seen: Jun 29, 2025 Resident Creating Document: HAZEL MAN RESIDENT Medical Necessity Reason Pt with a Central, PICC or Fol: No Subjective Review of Systems Patient is 49 years old female with a past medical history of hypertension, hyperlipidemia, history of TIA month before came with a complaint of chest pain for 2 days, gradual onset, 8/10, pressure-like, aggravated with movement, patient also endorsed bilateral feet swelling for 2 weeks. On further inquiry patient reported feeling numbness and tingling in the face and bilateral lower extremity. Patient denied any cough, fever, dysuria, diarrhea, acute joint redness. Initial lab workup revealed troponin I with a normal limit. EKG no acute ST elevation. PMH-hypertension, hyperlipidemia, history of TIA PSH- NONE Family history-mom had hypertension Allergy- NKDA Personal History/ Social History- denies all, lives with kids Respiratory denies cough or short of breath or wheezing Gastrointestinal- denies any rectal bleeding, nausea or vomiting Musculoskeletal-denies acute joint swelling or tenderness or redness Neurological- denies acute dysarthria, dysphagia, change in vision Psychiatry- denies depression or SI or HI Skin- denies acute rash or purpura Patient was seen today at bedside. Labs and chart reviewed. Patient reported pain is improving. Patient's chest wall tenderness on palpation. Pending cardiology consult. Objective vital signs Vital Sign Date Time Temp Pulse Resp B/P (MAP) Pulse Ox O2 Delivery O2 Flow Rate FiO2 06/29/25 13:00 97.2 63 20 131/68 (89) 91 97.2 06/29/25 12:45 Room Air* 0 21 Total Intake and Output 06/28/25 06/28/25 06/29/25 15:00 23:00 07:00 Intake Total 0 ml Balance 0 ml medications Current Medications Medications Dose Ordered Sig/Justina Route Start Time Stop Time Status Last Admin Dose Admin Acetaminophen/ Hydrocodone Bitart 1 tab Q4HP PRN PO 06/29/25 01:30 Ondansetron HCl 4 mg Q4HP PRN IV 06/29/25 01:30 Docusate Sodium 100 mg BIDPRN PRN PO 06/29/25 01:30 Nitroglycerin 0.4 mg Q5MINP PRN SL 06/29/25 01:30 Aspirin 81 mg DAILY PO 06/29/25 10:00 06/29/25 10:28 81 MG Atorvastatin Calcium 40 mg HS PO 06/29/25 22:00 Amlodipine Besylate 10 mg DAILY PO 06/29/25 08:45 06/29/25 10:00 10 MG Buspirone HCl 15 mg Q12HR PO 06/29/25 10:00 06/29/25 10:00 15 MG Loratadine 10 mg HS PO 06/29/25 22:00 Patient Own Medication 1 DAILY PO 06/29/25 10:00 Pantoprazole Sodium 40 mg DAILY@0600 PO 06/29/25 10:00 06/29/25 10:33 40 MG Enoxaparin Sodium 40 mg DAILY SC 06/29/25 10:00 06/29/25 10:30 40 MG Ergocalciferol 50,000 unit Q7D PO 06/29/25 10:15 06/29/25 14:53 50,000 UNIT Examination General examination- awake, alert, oriented HEENT- PEERLA, no acute nasal discharge Cardiovascular- chest wall tenderness positive, S1-S2 audible, rate and rhythm regular, no murmur Respiratory- CTAB, no wheeze or rhonchi Gastrointestinal-nontender, bowel sound+. Nondistended Musculoskeletal-no acute joint swelling or tenderness or redness Lower extremity- + bilateral leg edema Neurological- cranial nerves intact, no acute dysarthria or dysphagia Psychiatry- denies depression or SI or HI Skin- no acute rash or purpura laboratory and microbiology Laboratory Tests 06/29/25 04:51 Test 06/29/25 04:51 Range/Units Serum Glucose 100 74-106 mg/dL Problem List/Assessment/Plan Problem List/Assessment/Plan Assessment and plan # acute chest pain, rule out acute coronary syndrome # rule out acute pericarditis/pneumonia # acute chest pain likely due to musculoskeletal pain -CXR no acute cardiopulmonary abnormality -troponin I with a normal limit, BNP with a normal limit -EKG no acute ST elevation, sinus rhythm -aspirin 81 mg p.o. daily -atorvastatin 40 mg p.o. q.h.s. -continue pain medication as prescribed -pending cardiology consult -pending echo 2D # bilateral leg edema -TSH 1.70 -Doppler study negative for DVT -leg elevation -continue conservative management # hypertension -continue amlodipine 10 mg p.o. daily -monitor blood pressure # hyperlipidemia -continue atorvastatin 40 mg p.o. daily # obesity -patient was counseled about the effect of obesity on health, weight reduction, physical activity as tolerated, low-fat diet # vitamin-D deficiency -continue vitamin supplement as prescribed Goals of care, Code status full code; discussed with >15 minutes PUD prophylaxis: Pantoprazole DVT prophylaxis: Lovenox Plan discussed with Dr. Yu , nursing staff, Total time spent on patient evaluation, chart review, assessment and plan, discussion discussion >35 minutes Plan discussed with: Patient, Other (RN) My Orders My Orders Orders - HAZEL MAN Procedure Category Date Status Time Bilat Lower Dvt US 06/29/25 Resulted 09:33 Transfer Orders XFER 06/29/25 Transmitted 09:34 Pantoprazole Tablet PHA 06/29/25 In Process (Protonix Tablet) 10:00 Enoxaparin Sodium PHA 06/29/25 In Process (Lovenox) 10:00 Ergocalciferol PHA 06/29/25 In Process (Vitamin D 50,000 10:15 * Cardiology Consult CONS 06/29/25 Transmitted 11:49 Date of Service: Jun 29, 2025 Billing Provider: KETURAH NOLAN MD Common Visit Codes: [id number] INP/OBS CARE(HIGH) HAZEL MAN Jun 29, 2025 15:26 KETURAH NOLAN MD Jul 04, 2025 00:49
[2025-06-29 17:00] VITALS: BP 145/75; PULSE 67; RESP 18; TEMP 97.2; O2SAT 94
--- NOTE | 2025-06-29 17:37 | DVHINCON2 ---
Date Seen: Jun 29, 2025 Referring Physician MD Parviz resident Reason for Consultation Chest pain and shortness of breath History of Present Illness This is a Tanzanian-speaking 49-year-old female patient who presents to emergency room with chief complaint of chest pain and shortness of breath. The patient reports symptoms began one day prior to emergency room arrival. She describes the chest pain as unprovoked, constant, pressure-like in nature, substernal with radiation to her mid upper back. Associated symptoms include shortness of breath. She denies any alleviating or aggravating factors. Initial twelve lead electrocardiogram reveals normal sinus rhythm with nonspecific ST segment changes to lateral leads. Troponin levels have been negative. Significant past medical history includes hypertension, dyslipidemia, TIA, and obesity. The patient denies any previous cardiac workup. The patient reports significant c ardiac history within the family including her mother and sister with coronary artery disease. Past Medical History Past medical history reviewed. No other significant than mentioned above. Past Surgical History Denies any previous surgeries Family History: Cerebrovascular accident (CVA) G8 MOTHER Hypercholesterolemia G8 MOTHER Hypertension G8 MOTHER Family History Family history reviewed. Social History Denies the use of tobacco, alcohol or illicit drugs. Allergies: Coded Allergies: NO KNOWN ALLERGIES (Unverified , 02/04/25) Home Meds Reported Medications Vilazodone HCl (Vilazodone Hydrochloride) 40 Mg Tab, 1 PO 06/29/25 Atorvastatin Calcium (ATORVASTATIN CALCIUM) 80 Mg Tab, 1 TAB PO DAILY 06/29/25 Chlorthalidone (Chlorthalidone) 50 Mg Tab, 1 TAB PO DAILY 06/29/25 Losartan Potassium (Losartan Potassium) 100 Mg Tab, 1 TAB PO DAILY 06/29/25 Pantoprazole Sodium Sesquihydr (Pantoprazole Sodium) 40 Mg Tab, 1 TAB PO DAILY 06/29/25 Gabapentin (Gabapentin) 300 Mg Cap, 1 CAP PO DAILY 06/29/25 Aspirin (Aspirin Low Dose) 81 Mg Tab, 1 TAB PO DAILY 06/29/25 Amlodipine Besylate (Amlodipine Besylate) 10 Mg Tab, 1 TAB PO DAILY 06/29/25 Atorvastatin Calcium (ATORVASTATIN CALCIUM) 20 Mg Tab, 1 TAB PO DAILY 06/29/25 Home Meds Home medications reviewed. Current Medications Current Medications Medications (Trade) Dose Ordered Sig/Justina Route PRN Reason Start Time Stop Time Status Last Admin Acetaminophen/ Hydrocodone Bitart ([place] 5/325MG Tab) 1 tab Q4HP PRN PO MODERATE PAIN (4-6 PAIN SCALE) 06/29/25 01:30 Ondansetron HCl (Zofran) 4 mg Q4HP PRN IV NAUSEA / VOMITING 06/29/25 01:30 Docusate Sodium (Colace Capsule) 100 mg BIDPRN PRN PO FOR CONSTIPATION 06/29/25 01:30 Nitroglycerin (Ntrostat Sublingual) 0.4 mg Q5MINP PRN SL FOR CHEST PAIN 06/29/25 01:30 Morphine Sulfate 2 mg Q30M PRN IV FOR CHEST PAIN 06/29/25 01:30 06/29/25 04:27 DC Aspirin 81 mg DAILY PO 06/29/25 10:00 06/29/25 10:28 Atorvastatin Calcium (Lipitor) 40 mg HS PO 06/29/25 22:00 Amlodipine Besylate (Norvasc Tablet) 10 mg DAILY PO 06/29/25 08:45 06/29/25 10:00 Buspirone HCl (Buspar Tablet) 15 mg Q12HR PO 06/29/25 10:00 06/29/25 10:00 Loratadine (Claritin Tablet) 10 mg HS PO 06/29/25 22:00 Patient Own Medication 1 DAILY PO 06/29/25 10:00 Pantoprazole Sodium (Protonix Tablet) 40 mg DAILY@0600 PO 06/29/25 10:00 06/29/25 10:33 Enoxaparin Sodium (Lovenox) 40 mg DAILY SC 06/29/25 10:00 06/29/25 10:30 Ergocalciferol (Vitamin D 50,000 Unit) 50,000 unit Q7D PO 06/29/25 10:15 06/29/25 14:53 Review of Systems Constitutional: No symptom reported Ears, Nose, & Throat: No symptom reported Eyes: No symptom reported Neurological: No symptoms reported Pulmonary/Respiratory: Shortness of breath Cardiovascular: Chest pain Gastrointestinal: No symptom reported Genitourinary: No symptom reported Musculoskeletal: No symptom reported Skin: No symptom reported Psychiatric: No symptom reported Endocrine: No symptom reported Hematologic/Lymphatic: No symptom reported Vital Signs Vital Signs Date Time Temp Pulse Resp B/P (MAP) Pulse Ox O2 Delivery O2 Flow Rate FiO2 06/29/25 17:00 97.2 67 18 145/75 (98) 94 97.2 06/29/25 12:45 Room Air* 0 21 Physical Exam General Appearance: Cooperative. Well-developed. Well-nourished. No acute distress. Pulmonary/Respiratory: Clear, bilateral breaths sounds. Cardiovascular/Chest: Regular rate and rhythm. Peripheral Pulses: 2+ Radial (R). 2+ Radial (L). 2+ Pedal (R). 2+ Pedal (L) Abdominal Exam: Normal bowel sounds. Ankle Exam: 3 +pitting edema Lower extremities: 3+ pitting edema Neuro/Mental Status: A/OX4, coherent. Thoughts/Psych: Normal thought pattern. Appropriate mood and affect. Good judgment and insight. Appearance: No acute distress. Skin Exam: Normal inspection. Normal color. Warm and dry. Labs/Diagnostic Data Labs Test 06/29/25 04:51 06/29/25 00:20 06/28/25 23:38 Range/Units White Blood Count 7.2 4.4-10.8 10^3/uL Red Blood Count 5.06 4.0-5.20 10^6/uL Hemoglobin 15.3 12.2-16.2 g/dL Hematocrit 43.7 36.0-46.0 % Mean Corpuscular Volume 86.4 80.0-100.0 fL Mean Corpuscular Hemoglobin 30.2 28.0-32.0 pg Mean Corpuscular Hemoglobin Concent 35.0 32.0-36.0 g/dL Red Cell Distribution Width 13.4 11.8-14.3 % Platelet Count 144 140-450 10^3/uL Mean Platelet Volume 9.5 6.9-10.8 fL Neutrophils (%) (Auto) 59.3 37.0-80.0 % Lymphocytes (%) (Auto) 27.8 10.0-50.0 % Monocytes (%) (Auto) 10.1 0.0-12.0 % Eosinophils (%) (Auto) 2.5 0.0-7.0 % Basophils (%) (Auto) 0.3 0.0-2.0 % Neutrophils # (Auto) 4.3 1.6-8.6 10 ^3/uL Lymphocytes # (Auto) 2.0 0.4-5.4 10 ^3/uL Monocytes # (Auto) 0.7 0-1.3 10 ^3/uL Eosinophils # (Auto) 0.2 0-0.8 10 ^3/uL Basophils # (Auto) 0 0-0.2 10 ^3/uL Nucleated Red Blood Cells 0.1 % Erythrocyte Sedimentation Rate 8 0-20 mm/hr Sodium Level 142 136-145 mmol/L Potassium Level 4.2 3.5-5.1 mmol/L Chloride Level 108 H 98-107 mmol/L Carbon Dioxide Level 27 20-31 mmol/L Anion Gap 7 5-15 Blood Urea Nitrogen 14 9-23 mg/dL Creatinine 0.69 0.550-1.02 mg/dL Glomerular Filtration Rate Calc 107 >90 mL/min BUN/Creatinine Ratio 20.3 H 10.0-20.0 Serum Glucose 100 74-106 mg/dL Hemoglobin A1c 5.0 <5.7 % A1C Calcium Level 8.8 8.7-10.4 mg/dL Total Bilirubin 0.6 0.2-1.0 mg/dL Aspartate Amino Transferase (AST) 32 13-40 U/L Alanine Aminotransferase (ALT) 30 7-40 U/L Alkaline Phosphatase 106 46-116 U/L C-Reactive Protein High Sensitivity 0.43 <1.0 mg/dL Total Protein 7.2 5.7-8.2 g/dL Albumin 4.2 3.2-4.8 g/dL Vitamin B12 Level 387 211-911 pg/mL Vitamin D 25-Hydroxy 22.3 L 30.0-100 ng/mL Folic Acid 12.26 >5.38 ng/mL Thyroid Stimulating Hormone (TSH) 1.70 0.55-4.78 uIU/mL Troponin I High Sensitivity < 3 L </=34 ng/L Prothrombin Time 9.9 9.3-11.8 sec Prothrombin Time INR 0.93 0.9-1.15 Direct Bilirubin 0.1 <0.3 mg/dL B-Type Natriuretic Peptide 21.36 0-100 pg/mL Triglycerides Level 286 H < 150 mg/dL Cholesterol Level 199 < 200 mg/dL LDL Cholesterol 120 H < 100 mg/dL HDL Cholesterol 54 40-59 mg/dL Assessment Chest pain, rule out coronary ischemia Rule out structural heart disease Hypertension Dyslipidemia History of TIA Morbid obesity Plan/Recommendation We will continue with the following plan/recommendations (Dr. Chavez): * Transthoracic echocardiogram to evaluate cardiac function * Chest pain protocol * HEART score: 4 points (moderate score) * Blood pressure control * Lipid-lowering agent * Close Cardiac surveillance * Nuclear stress test Given the patient's clinical presentation, comorbidities, and HEART score, the patient was offered a nuclear stress test for which she agreed. We will schedule the patient at soonest availability. Thank you for allowing us to care for this patient. Please call with any questions or concerns. Critical care time spent: 44 minutes This medical document was created using an electronic medical record system with voice recognition software and computerized dictation system. Although this document has been carefully reviewed, there might still be some phonetic and typographical errors. Occasional wrong-word or ``sound-alike substitutions may have occurred due to the inherent limitations of voice recognition software. These areas are purely typographical due to imperfections of the software programs and do not reflect any compromise in the patient's medical care. Please read the chart carefully and recognize, using context, where these substitutions have occurred. Plan discussed with: Patient NYHA Physical activity limitations: NA Date of Service: Jun 29, 2025 Billing Provider: XAVIER GONZALEZ Cardiology Common Codes: [id number] INP/OBS CARE (High) Cardiology Consultation Codes: [id number] CONSULT <45MIN XAVIER GONZALEZ Jun 29, 2025 17:37
[2025-06-29 21:00] VITALS: BP 151/87; PULSE 74; RESP 18; TEMP 98.2; O2SAT 98
[2025-06-29 21:08] LABS: COVID19 ANTIGEN SOFIA FIA NEGATIVE (NEGATIVE)
[2025-06-29] MEDS: LORATADINE 10 MG TAB PO SCH (21:39)
[2025-06-29] MEDS: ATORVASTATIN 20 MG TAB PO SCH (21:40)
[2025-06-29] MEDS: HYDROcodone-ACET 5/325MG TAB PO PRN (21:47)
[2025-06-29 22:12] LABS: Urine Protein, UAD Negative (Negative)
[2025-06-29 22:15] LABS: Amphetamine Screen, Urine Neg (NEGATIVE); Barbiturate Scree,Urine Neg (NEGATIVE); Benzodiazephine Screen, Urine Neg (NEGATIVE); Cannabinoid Screen, Urine Neg (NEGATIVE); Cocaine Screen, Urine Neg (NEGATIVE); Opiate Scree,Urine Neg (NEGATIVE); Phencyclidine Screen, Urine Neg (NEGATIVE)
[2025-06-30] VITALS (8 sets, daily range): BP systolic 121–162; BP diastolic 75–98; PULSE 64–81; RESP 17–18; TEMP 97.5–97.8; O2SAT 93–97
[2025-06-30 06:24] LABS: Hematocrit 42.1 % (36.0-46.0); Hemoglobin 14.7 g/dL (12.2-16.2); Mean Corpuscular Hemoglobin 30.1 pg (28.0-32.0); Mean Corpuscular Volume 86.2 fL (80.0-100.0); Nucleated Red Blood Cells % 0.0 %
[2025-06-30 06:38] LABS: Anion Gap 8 (5-15); Carbon Dioxide 26 mmol/L (20-31); Potassium 3.7 mmol/L (3.5-5.1); Sodium 141 mmol/L (136-145)
[2025-06-30 06:44] LABS: BUN/Creatinine Ratio 19.3 (10.0-20.0); Blood Urea Nitrogen 11 mg/dL (9-23); Calcium 8.4 mg/dL (8.7-10.4); Chloride 107 mmol/L (98-107); Glucose 85 mg/dL (74-106); Magnesium 2.0 mg/dL (1.6-2.6)
[2025-06-30] MEDS: REGADENOSON 0.4 MG/5 ML SYRG IV ONE ×2 (09:57→09:58)
[2025-06-30] MEDS: FUROSEMIDE 40 MG/4 ML VIAL IV SCH (12:05)
--- NOTE | 2025-06-30 12:24 | DVHPNRES ---
Progress Note Date Seen: Jun 30, 2025 Resident Creating Document: HAZEL MAN RESIDENT Medical Necessity Reason Pt with a Central, PICC or Fol: No Subjective Review of Systems Patient is 49 years old female with a past medical history of hypertension, hyperlipidemia, history of TIA month before came with a complaint of chest pain for 2 days, gradual onset, 8/10, pressure-like, aggravated with movement, patient also endorsed bilateral feet swelling for 2 weeks. On further inquiry patient reported feeling numbness and tingling in the face and bilateral lower extremity. Patient denied any cough, fever, dysuria, diarrhea, acute joint redness. Initial lab workup revealed troponin I with a normal limit. EKG no acute ST elevation. PMH-hypertension, hyperlipidemia, history of TIA PSH- NONE Family history-mom had hypertension Allergy- NKDA Personal History/ Social History- denies all, lives with kids Respiratory denies cough or short of breath or wheezing Gastrointestinal- denies any rectal bleeding, nausea or vomiting Musculoskeletal-denies acute joint swelling or tenderness or redness Neurological- denies acute dysarthria, dysphagia, change in vision Psychiatry- denies depression or SI or HI Skin- denies acute rash or purpura Patient was seen today at bedside. Labs and chart reviewed. Patient reported her chest pain has improved. Patient is seen by Cardiology yesterday, recommendation reviewed and appreciated Patient is due for cardiac nuclear stress test for further evaluation and care. Objective vital signs Vital Sign Date Time Temp Pulse Resp B/P (MAP) Pulse Ox O2 Delivery O2 Flow Rate FiO2 06/30/25 12:05 153/78 06/30/25 09:10 97.6 77 17 97 97.6 06/29/25 12:45 Room Air* 0 21 Total Intake and Output 06/29/25 06/29/25 06/30/25 15:00 23:00 07:00 Intake Total 0 ml Balance 0 ml medications Current Medications Medications Dose Ordered Sig/Justina Route Start Time Stop Time Status Last Admin Dose Admin Acetaminophen/ Hydrocodone Bitart 1 tab Q4HP PRN PO 06/29/25 01:30 06/30/25 12:08 1 TAB Ondansetron HCl 4 mg Q4HP PRN IV 06/29/25 01:30 Docusate Sodium 100 mg BIDPRN PRN PO 06/29/25 01:30 Nitroglycerin 0.4 mg Q5MINP PRN SL 06/29/25 01:30 Aspirin 81 mg DAILY PO 06/29/25 10:00 06/30/25 11:48 81 MG Atorvastatin Calcium 40 mg HS PO 06/29/25 22:00 06/29/25 21:40 40 MG Amlodipine Besylate 10 mg DAILY PO 06/29/25 08:45 06/30/25 11:46 10 MG Buspirone HCl 15 mg Q12HR PO 06/29/25 10:00 06/30/25 11:47 15 MG Loratadine 10 mg HS PO 06/29/25 22:00 06/29/25 21:39 10 MG Patient Own Medication 1 DAILY PO 06/29/25 10:00 Pantoprazole Sodium 40 mg DAILY@0600 PO 06/29/25 10:00 06/30/25 05:48 40 MG Enoxaparin Sodium 40 mg DAILY SC 06/29/25 10:00 06/30/25 11:45 40 MG Ergocalciferol 50,000 unit Q7D PO 06/29/25 10:15 06/29/25 14:53 50,000 UNIT Ceftriaxone Sodium 50 ml @ 100 mls/hr DAILY@09 IV 07/01/25 09:00 Furosemide 40 mg BIDD IV 06/30/25 09:15 06/30/25 12:05 40 MG Examination General examination- awake, alert, oriented HEENT- PEERLA, no acute nasal discharge Cardiovascular- chest wall tenderness positive, S1-S2 audible, rate and rhythm regular, no murmur Respiratory- CTAB, no wheeze or rhonchi Gastrointestinal-nontender, bowel sound+. Nondistended Musculoskeletal-no acute joint swelling or tenderness or redness Lower extremity- + bilateral leg edema Neurological- cranial nerves intact, no acute dysarthria or dysphagia Psychiatry- denies depression or SI or HI Skin- no acute rash or purpura laboratory and microbiology Laboratory Tests 06/30/25 05:34 Test 06/30/25 05:34 Range/Units Serum Glucose 85 74-106 mg/dL Problem List/Assessment/Plan Problem List/Assessment/Plan Assessment and plan # acute chest pain, rule out acute coronary syndrome # rule out acute pericarditis/pneumonia # acute chest pain likely due to musculoskeletal pain -CXR no acute cardiopulmonary abnormality -troponin I with a normal limit, BNP with a normal limit -EKG no acute ST elevation, sinus rhythm -aspirin 81 mg p.o. daily -atorvastatin 40 mg p.o. q.h.s. -continue pain medication as prescribed - cardiology consult reviewed and appreciated - echo 2D-pending report -nuclear stress test-negative for ischemia # bilateral leg edema -TSH 1.70 -Doppler study negative for DVT -leg elevation -continue conservative management # hypertension -continue amlodipine 10 mg p.o. daily -monitor blood pressure # hyperlipidemia -continue atorvastatin 40 mg p.o. daily # obesity -patient was counseled about the effect of obesity on health, weight reduction, physical activity as tolerated, low-fat diet # vitamin-D deficiency -continue vitamin supplement as prescribed Goals of care, Code status full code; discussed with >15 minutes PUD prophylaxis: Pantoprazole DVT prophylaxis: Lovenox Plan discussed with Dr. Yu , nursing staff, Total time spent on patient evaluation, chart review, assessment and plan, discussion discussion >35 minutes Plan discussed with: Patient, Other (RN) My Orders My Orders Orders - HAZEL MAN Procedure Category Date Status Time Urine Bacterial ZACK 06/30/25 In Process Culture 06:50 Ceftriaxone 1gm/50ml PHA 07/01/25 In Process (Rocephin) 09:00 Furosemide Injection PHA 06/30/25 In Process (Lasix Injection) 09:15 Date of Service: Jun 30, 2025 Billing Provider: KETURAH NOLAN MD Common Visit Codes: [id number] INP/OBS CARE(HIGH) HAZEL MAN Jun 30, 2025 12:23 KETURAH NOLAN MD Jul 04, 2025 01:17
--- NOTE | 2025-06-30 12:32 | DVHSR ---
APPROVED REPORT Exam: Nuclear Stress Test BMI: 0 Stress Test Details HR Max Heart Rate (APMHR): 172.715817 bpm Target HR (85% APMHR): 146.864392 bpm BP ECG Stress ECG Conclusion lvef 60% normal perfusion scan no major ischemia noted NM EXAM: Myocardial Perfusion REST/STRESS Imaging Protocol: Rest Tc-99m/Stress Tc-99m 1 day Resting Data Rest SPECT myocardial perfusion imaging was performed in supine position 60 minutes following the int ravenous injection of 9.1 mCi of Tc-99m Sestamibi. Time of rest injection: 07:50 Date: 06/30/2025 Time of rest imagin:50 Date: 06/30/2025 Administration Route: IV Administration Site: Left Arm Pharmacologic Stress Pharmacologic stress test was performed by injecting Regadenoson 0.4 mg IV push followed by the intra venous injection of 33.7 mCi of Tc-99m Sestamibi. Time of stress injection: 10:00 Date: 06/30/2025 Time of stress imagin:00 Date: 06/30/2025 Administration Route: IV Administration Site: Left Arm The images were gated to evaluate regional wall motion and calculate left ventricular ejection fracti on. Stress only was performed in the Supine position. Nuclear Conclusion Nuclear Findings: negative for ischemia lvef 60% normal perfusion scan no major ischemia noted
--- NOTE | 2025-06-30 16:57 | DVHPN2 ---
Consult Progress Note Subjective Patient reports: Feels better Other Systems: Patient denies any cardiac symptoms at time of assessment Objective vital signs Vital Sign Date Time Temp Pulse Resp B/P (MAP) Pulse Ox O2 Delivery O2 Flow Rate FiO2 06/30/25 13:14 97.8 68 17 143/88 (106) 93 97.8 06/30/25 08:00 Room Air* 0 21 Total Intake and Output 06/29/25 06/29/25 06/30/25 15:00 23:00 07:00 Intake Total 0 ml Balance 0 ml medications Current Medications Medications Dose Ordered Sig/Justina Route Start Time Stop Time Status Last Admin Dose Admin Acetaminophen/ Hydrocodone Bitart 1 tab Q4HP PRN PO 06/29/25 01:30 06/30/25 12:08 1 TAB Ondansetron HCl 4 mg Q4HP PRN IV 06/29/25 01:30 Docusate Sodium 100 mg BIDPRN PRN PO 06/29/25 01:30 Nitroglycerin 0.4 mg Q5MINP PRN SL 06/29/25 01:30 Aspirin 81 mg DAILY PO 06/29/25 10:00 06/30/25 11:48 81 MG Atorvastatin Calcium 40 mg HS PO 06/29/25 22:00 06/29/25 21:40 40 MG Amlodipine Besylate 10 mg DAILY PO 06/29/25 08:45 06/30/25 11:46 10 MG Buspirone HCl 15 mg Q12HR PO 06/29/25 10:00 06/30/25 11:47 15 MG Loratadine 10 mg HS PO 06/29/25 22:00 06/29/25 21:39 10 MG Patient Own Medication 1 DAILY PO 06/29/25 10:00 Pantoprazole Sodium 40 mg DAILY@0600 PO 06/29/25 10:00 06/30/25 05:48 40 MG Enoxaparin Sodium 40 mg DAILY SC 06/29/25 10:00 06/30/25 11:45 40 MG Ergocalciferol 50,000 unit Q7D PO 06/29/25 10:15 06/29/25 14:53 50,000 UNIT Ceftriaxone Sodium 50 ml @ 100 mls/hr DAILY@09 IV 07/01/25 09:00 Furosemide 40 mg BIDD IV 06/30/25 09:15 06/30/25 12:05 40 MG Examination: GENERAL:Normal, LUNGS:Normal, CVS:Normal, NEURO:Normal laboratory and microbiology Laboratory Tests 06/30/25 05:34 Test 06/30/25 05:34 Range/Units Serum Glucose 85 74-106 mg/dL Problem List/Assessment/Plan Problem List/Assessment/Plan Chest pain, ruled out coronary ischemia Rule out structural heart disease Hypertension Dyslipidemia History of TIA Morbid obesity Plan/Recommendations (Dr. Chavez): * Transthoracic echocardiogram to evaluate cardiac function * Chest pain protocol * HEART score: 4 points (moderate score) * Blood pressure control * Lipid-lowering agent * Close Cardiac surveillance * Nuclear stress test: Negative for ischemia The patient underwent a nuclear stress test today which was negative for ischemia. In the setting of an unremarkable transthoracic echocardiogram, there is no further inpatient cardiac workup indicated at this time. Thank you for allowing us to care for this patient. Please call with any questions or concerns. This medical document was created using an electronic medical record system with voice recognition software and computerized dictation system. Although this document has been carefully reviewed, there might still be some phonetic and typographical errors. Occasional wrong-word or ``sound-alike substitutions may have occurred due to the inherent limitations of voice recognition software. These areas are purely typographical due to imperfections of the software programs and do not reflect any compromise in the patient's medical care. Please read the chart carefully and recognize, using context, where these substitutions have occurred. Plan discussed with: Patient Date of Service: Jun 30, 2025 Billing Provider: XAVIER GONZALEZ Common Visit Codes: [id number] INP/OBS CARE(HIGH) XAVIER GONZALEZ Jun 30, 2025 16:57
--- NOTE | 2025-07-01 00:49 | DVHSR ---
APPROVED REPORT EXAM: Two-dimensional and M-mode echocardiogram with Doppler and color Doppler. Blood Pressure: 153/78 mmHg INDICATION Rule out structural heart disease RISK FACTORS Obesity: Height: 5', Weight: 233 DIMENSIONS LVDd4.5 (3.8-5.7cm)LA (2D)4.0 (1.9-4.0cm)Aortic Root3.8 (2.0-3.7cm) LVDs3.1 (2.5-4.0cm)LA (MM) (1.9-4.0cm)Aortic Cusp Exc1.8 (1.5-2.0cm) EF (%) 60.0 (55-70%)Rt. Atrium3.8 (1.9-4.0cm)Asc. Aorta cm IVSd1.3 (0.7-1.1cm)RV (D) (1.8-2.4cm) PWd1.2 (0.7-1.1cm) Mitral Valve MitralMitral Stenosis E wave0.70m/sMV Mean GR.mmHg A wave0.90m/sMV Peak GR.mmHg E/A ratio0.82D MVAcm2 Aortic Valve Aortic ValveAortic Stenosis V11.00m/Nolvia Mean GR.4mmHg V21.20m/Nolvia Peak GR.6mmHg LVOT Diameter2.2 (1.8-2.4cm)Doppler AVA3.17cm2 Pulmonic Valve V20.80m/s Tricuspid Valve TR Velocity2.00m/s [id number] Conclusion lvef 60% normal rv function normal atria no severe valve abnormalities noted
--- NOTE | 2025-07-01 07:16 | DVHDSRES ---
Discharge Summary Date of Admission Resident Creating Document: AHZEL MAN RESIDENT Jun 29, 2025 at 01:22 Date of Discharge: Jun 30, 2025 Admitting Diagnosis Acute chest pain, rule out acute coronary syndrome Labs/Diagnostic Data: Laboratory Results Test 06/30/25 05:34 06/29/25 21:30 06/29/25 20:00 06/29/25 04:51 White Blood Count 6.5 10^3/uL (4.4-10.8) Red Blood Count 4.88 10^6/uL (4.0-5.20) Hemoglobin 14.7 g/dL (12.2-16.2) Hematocrit 42.1 % (36.0-46.0) Mean Corpuscular Volume 86.2 fL (80.0-100.0) Mean Corpuscular Hemoglobin 30.1 pg (28.0-32.0) Mean Corpuscular Hemoglobin Concent 34.9 g/dL (32.0-36.0) Red Cell Distribution Width 13.6 % (11.8-14.3) Platelet Count 131 10^3/uL (140-450) Mean Platelet Volume 9.4 fL (6.9-10.8) Neutrophils (%) (Auto) 59.9 % (37.0-80.0) Lymphocytes (%) (Auto) 29.0 % (10.0-50.0) Monocytes (%) (Auto) 8.4 % (0.0-12.0) Eosinophils (%) (Auto) 2.4 % (0.0-7.0) Basophils (%) (Auto) 0.3 % (0.0-2.0) Neutrophils # (Auto) 3.9 10 ^3/uL (1.6-8.6) Lymphocytes # (Auto) 1.9 10 ^3/uL (0.4-5.4) Monocytes # (Auto) 0.5 10 ^3/uL (0-1.3) Eosinophils # (Auto) 0.2 10 ^3/uL (0-0.8) Basophils # (Auto) 0 10 ^3/uL (0-0.2) Nucleated Red Blood Cells 0.0 % Sodium Level 141 mmol/L (136-145) Potassium Level 3.7 mmol/L (3.5-5.1) Chloride Level 107 mmol/L (98-107) Carbon Dioxide Level 26 mmol/L (20-31) Anion Gap 8 (5-15) Blood Urea Nitrogen 11 mg/dL (9-23) Creatinine 0.57 mg/dL (0.550-1.02) Glomerular Filtration Rate Calc 112 mL/min (>90) BUN/Creatinine Ratio 19.3 (10.0-20.0) Serum Glucose 85 mg/dL (74-106) Calcium Level 8.4 mg/dL (8.7-10.4) Magnesium Level 2.0 mg/dL (1.6-2.6) Urine Color Yellow (Yellow) Urine Clarity Clear (Clear) Urine pH 6.0 (5.0-9.0) Urine Specific [place]ding 1.027 (1.001-1.035) Urine Protein Negative (Negative) Urine Ketones Negative (Negative) Urine Blood Negative /uL (Negative) Urine Nitrite Negative (Negative) Urine Bilirubin Negative (Negative) Urine Urobilinogen Normal mg/dL (Negative) Urine Leukocyte Esterase 1+ /uL (Negative) Urine RBC 3 /hpf (0 - 4) Urine Microscopic WBC 9 /HPF (0-5) Urine Squamous Epithelial Cells Few /hpf (<5) Urine Bacteria Few /hpf (None Seen) Urine Mucus Few (None Seen) Urine Glucose Normal mg/dL (Normal) Urine Opiates Screen Neg (NEGATIVE) Urine Fentanyl Screen Neg (NEGATIVE) Urine Barbiturates Screen Neg (NEGATIVE) Urine Phencyclidine Screen Neg (NEGATIVE) Urine Amphetamines Screen Neg (NEGATIVE) Urine Benzodiazepines Screen Neg (NEGATIVE) Urine Cocaine Screen Neg (NEGATIVE) Urine Cannabinoids Screen Neg (NEGATIVE) Influenza Type A Antigen Negative (Negative) Influenza Type B Antigen Negative (Negative) SARS-CoV-2 Antigen (Rapid) Negative (NEGATIVE) Erythrocyte Sedimentation Rate 8 mm/hr (0-20) Hemoglobin A1c 5.0 % A1C (<5.7) Total Bilirubin 0.6 mg/dL (0.2-1.0) Aspartate Amino Transferase (AST) 32 U/L (13-40) Alanine Aminotransferase (ALT) 30 U/L (7-40) Alkaline Phosphatase 106 U/L (46-116) C-Reactive Protein High Sensitivity 0.43 mg/dL (<1.0) Total Protein 7.2 g/dL (5.7-8.2) Albumin 4.2 g/dL (3.2-4.8) Vitamin B12 Level 387 pg/mL (211-911) Vitamin D 25-Hydroxy 22.3 ng/mL (30.0-100) Folic Acid 12.26 ng/mL (>5.38) Thyroid Stimulating Hormone (TSH) 1.70 uIU/mL (0.55-4.78) Beta HCG, Quantitative 0.2 mIU/mL (1.5-4.2) Test 06/29/25 00:20 06/28/25 23:38 Troponin I High Sensitivity < 3 ng/L (</=34) Prothrombin Time 9.9 sec (9.3-11.8) Prothrombin Time INR 0.93 (0.9-1.15) Direct Bilirubin 0.1 mg/dL (<0.3) B-Type Natriuretic Peptide 21.36 pg/mL (0-100) Triglycerides Level 286 mg/dL (< 150) Cholesterol Level 199 mg/dL (< 200) LDL Cholesterol 120 mg/dL (< 100) HDL Cholesterol 54 mg/dL (40-59) Other Laboratory Tests 06/30/25 05:34 Brief Hx & Hospital Course: Patient is 49 years old female with a past medical history of hypertension, hyperlipidemia, history of TIA month before came with a complaint of chest pain for 2 days, gradual onset, 8/10, pressure-like, aggravated with movement, patient also endorsed bilateral feet swelling for 2 weeks. On further inquiry patient reported feeling numbness and tingling in the face and bilateral lower extremity. Patient denied any cough, fever, dysuria, diarrhea, acute joint redness. Initial lab workup revealed troponin I with a normal limit. EKG no acute ST elevation. Hospital course-during hospital course patient was treated conservatively, patient was seen by Cardiology, patient had nuclear stress test negative for ischemic changes, echo 2D revealed LVEF 60%. Patient was being diuresed for bilateral leg edema. Patient left AMA. Patient's condition unknown on discharge. Assessment and plan # acute chest pain likely due to musculoskeletal pain/pericarditis # acute chest pain, ruled out acute coronary syndrome # bilateral leg edema # hypertension # hyperlipidemia # history of TIA # obesity # vitamin-D deficiency Plan Patient left AMA Consults/Reason for consult Patient Name: ANGE MEADESAHIL Acct: [id number] Room: 1030-ER /Bed: A Attending Physician: HAZEL MAN RESIDENT Loc: [facility] Unit: [id number] CONSULTATION REPORT . ................................................................................ ............................................................................... Date Seen: Jun 29, 2025 Referring Physician MD Parviz resident Reason for Consultation Chest pain and shortness of breath History of Present Illness This is a Ukrainian-speaking 49-year-old female patient who presents to emergency room with chief complaint of chest pain and shortness of breath. The patient reports symptoms began one day prior to emergency room arrival. She describes the chest pain as unprovoked, constant, pressure-like in nature, substernal with radiation to her mid upper back. Associated symptoms include shortness of breath. She denies any alleviating or aggravating factors. Initial twelve lead electrocardiogram reveals normal sinus rhythm with nonspecific ST segment changes to lateral leads. Troponin levels have been negative. Significant past medical history includes hypertension, dyslipidemia, TIA, and obesity. The patient denies any previous cardiac workup. The patient reports significant cardiac history within the family including her mother and sister with coronary artery disease. Past Medical History Past medical history reviewed. No other significant than mentioned above. Past Surgical History Denies any previous surgeries Family History: Cerebrovascular accident (CVA) G8 MOTHER Hypercholesterolemia G8 MOTHER Hypertension G8 MOTHER Family History Family history reviewed. Social History Denies the use of tobacco, alcohol or illicit drugs. Allergies: Coded Allergies: NO KNOWN ALLERGIES (Unverified , 02/04/25) Home Meds Reported Medications Vilazodone HCl (Vilazodone Hydrochloride) 40 Mg Tab, 1 PO 06/29/25 Atorvastatin Calcium (ATORVASTATIN CALCIUM) 80 Mg Tab, 1 TAB PO DAILY 06/29/25 Chlorthalidone (Chlorthalidone) 50 Mg Tab, 1 TAB PO DAILY 06/29/25 Losartan Potassium (Losartan Potassium) 100 Mg Tab, 1 TAB PO DAILY 06/29/25 Pantoprazole Sodium Sesquihydr (Pantoprazole Sodium) 40 Mg Tab, 1 TAB PO DAILY 06/29/25 Gabapentin (Gabapentin) 300 Mg Cap, 1 CAP PO DAILY 06/29/25 Aspirin (Aspirin Low Dose) 81 Mg Tab, 1 TAB PO DAILY 06/29/25 Amlodipine Besylate (Amlodipine Besylate) 10 Mg Tab, 1 TAB PO DAILY 06/29/25 Atorvastatin Calcium (ATORVASTATIN CALCIUM) 20 Mg Tab, 1 TAB PO DAILY 06/29/25 Home Meds Home medications reviewed. Current Medications Current Medications Medications (Trade) Dose Ordered Sig/Justina Route PRN Reason Start Time Stop Time Status Last Admin Acetaminophen/ Hydrocodone Bitart (Keene 5/325MG Tab) 1 tab Q4HP PRN PO MODERATE PAIN (4-6 PAIN SCALE) 06/29/25 01:30 Ondansetron HCl (Zofran) 4 mg Q4HP PRN IV NAUSEA / VOMITING 06/29/25 01:30 Docusate Sodium (Colace Capsule) 100 mg BIDPRN PRN PO FOR CONSTIPATION 06/29/25 01:30 Nitroglycerin (Ntrostat Sublingual) 0.4 mg Q5MINP PRN SL FOR CHEST PAIN 06/29/25 01:30 Morphine Sulfate 2 mg Q30M PRN IV FOR CHEST PAIN 06/29/25 01:30 06/29/25 04:27 DC Aspirin 81 mg DAILY PO 06/29/25 10:00 06/29/25 10:28 Atorvastatin Calcium (Lipitor) 40 mg HS PO 06/29/25 22:00 Amlodipine Besylate (Norvasc Tablet) 10 mg DAILY PO 06/29/25 08:45 06/29/25 10:00 Buspirone HCl (Buspar Tablet) 15 mg Q12HR PO 06/29/25 10:00 06/29/25 10:00 Loratadine (Claritin Tablet) 10 mg HS PO 06/29/25 22:00 Patient Own Medication 1 DAILY PO 06/29/25 10:00 Pantoprazole Sodium (Protonix Tablet) 40 mg DAILY@0600 PO 06/29/25 10:00 06/29/25 10:33 Enoxaparin Sodium (Lovenox) 40 mg DAILY SC 06/29/25 10:00 06/29/25 10:30 Ergocalciferol (Vitamin D 50,000 Unit) 50,000 unit Q7D PO 06/29/25 10:15 06/29/25 14:53 Review of Systems Constitutional: No symptom reported Ears, Nose, & Throat: No symptom reported Eyes: No symptom reported Neurological: No symptoms reported Pulmonary/Respiratory: Shortness of breath Cardiovascular: Chest pain Gastrointestinal: No symptom reported Genitourinary: No symptom reported Musculoskeletal: No symptom reported Skin: No symptom reported Psychiatric: No symptom reported Endocrine: No symptom reported Hematologic/Lymphatic: No symptom reported Vital Signs Vital Signs Date Time Temp Pulse Resp B/P (MAP) Pulse Ox O2 Delivery O2 Flow Rate FiO2 06/29/25 17:00 97.2 67 18 145/75 (98) 94 97.2 06/29/25 12:45 Room Air* 0 21 Physical Exam General Appearance: Cooperative. Well-developed. Well-nourished. No acute distress. Pulmonary/Respiratory: Clear, bilateral breaths sounds. Cardiovascular/Chest: Regular rate and rhythm. Peripheral Pulses: 2+ Radial (R). 2+ Radial (L). 2+ Pedal (R). 2+ Pedal (L) Abdominal Exam: Normal bowel sounds. Ankle Exam: 3 +pitting edema Lower extremities: 3+ pitting edema Neuro/Mental Status: A/OX4, coherent. Thoughts/Psych: Normal thought pattern. Appropriate mood and affect. Good judgment and insight. Appearance: No acute distress. Skin Exam: Normal inspection. Normal color. Warm and dry. Labs/Diagnostic Data Labs Test 06/29/25 04:51 06/29/25 00:20 06/28/25 23:38 Range/Units White Blood Count 7.2 4.4-10.8 10^3/uL Red Blood Count 5.06 4.0-5.20 10^6/uL Hemoglobin 15.3 12.2-16.2 g/dL Hematocrit 43.7 36.0-46.0 % Mean Corpuscular Volume 86.4 80.0-100.0 fL Mean Corpuscular Hemoglobin 30.2 28.0-32.0 pg Mean Corpuscular Hemoglobin Concent 35.0 32.0-36.0 g/dL Red Cell Distribution Width 13.4 11.8-14.3 % Platelet Count 144 140-450 10^3/uL Mean Platelet Volume 9.5 6.9-10.8 fL Neutrophils (%) (Auto) 59.3 37.0-80.0 % Lymphocytes (%) (Auto) 27.8 10.0-50.0 % Monocytes (%) (Auto) 10.1 0.0-12.0 % Eosinophils (%) (Auto) 2.5 0.0-7.0 % Basophils (%) (Auto) 0.3 0.0-2.0 % Neutrophils # (Auto) 4.3 1.6-8.6 10 ^3/uL Lymphocytes # (Auto) 2.0 0.4-5.4 10 ^3/uL Monocytes # (Auto) 0.7 0-1.3 10 ^3/uL Eosinophils # (Auto) 0.2 0-0.8 10 ^3/uL Basophils # (Auto) 0 0-0.2 10 ^3/uL Nucleated Red Blood Cells 0.1 % Erythrocyte Sedimentation Rate 8 0-20 mm/hr Sodium Level 142 136-145 mmol/L Potassium Level 4.2 3.5-5.1 mmol/L Chloride Level 108 H 98-107 mmol/L Carbon Dioxide Level 27 20-31 mmol/L Anion Gap 7 5-15 Blood Urea Nitrogen 14 9-23 mg/dL Creatinine 0.69 0.550-1.02 mg/dL Glomerular Filtration Rate Calc 107 >90 mL/min BUN/Creatinine Ratio 20.3 H 10.0-20.0 Serum Glucose 100 74-106 mg/dL Hemoglobin A1c 5.0 <5.7 % A1C Calcium Level 8.8 8.7-10.4 mg/dL Total Bilirubin 0.6 0.2-1.0 mg/dL Aspartate Amino Transferase (AST) 32 13-40 U/L Alanine Aminotransferase (ALT) 30 7-40 U/L Alkaline Phosphatase 106 46-116 U/L C-Reactive Protein High Sensitivity 0.43 <1.0 mg/dL Total Protein 7.2 5.7-8.2 g/dL Albumin 4.2 3.2-4.8 g/dL Vitamin B12 Level 387 211-911 pg/mL Vitamin D 25-Hydroxy 22.3 L 30.0-100 ng/mL Folic Acid 12.26 >5.38 ng/mL Thyroid Stimulating Hormone (TSH) 1.70 0.55-4.78 uIU/mL Troponin I High Sensitivity < 3 L </=34 ng/L Prothrombin Time 9.9 9.3-11.8 sec Prothrombin Time INR 0.93 0.9-1.15 Direct Bilirubin 0.1 <0.3 mg/dL B-Type Natriuretic Peptide 21.36 0-100 pg/mL Triglycerides Level 286 H < 150 mg/dL Cholesterol Level 199 < 200 mg/dL LDL Cholesterol 120 H < 100 mg/dL HDL Cholesterol 54 40-59 mg/dL Assessment Chest pain, rule out coronary ischemia Rule out structural heart disease Hypertension Dyslipidemia History of TIA Morbid obesity Plan/Recommendation We will continue with the following plan/recommendations (Dr. Chavez): * Transthoracic echocardiogram to evaluate cardiac function * Chest pain protocol * HEART score: 4 points (moderate score) * Blood pressure control * Lipid-lowering agent * Close Cardiac surveillance * Nuclear stress test Given the patient's clinical presentation, comorbidities, and HEART score, the patient was offered a nuclear stress test for which she agreed. We will schedule the patient at soonest availability. Thank you for allowing us to care for this patient. Please call with any questions or concerns. Critical care time spent: 44 minutes This medical document was created using an electronic medical record system with voice recognition software and computerized dictation system. Although this document has been carefully reviewed, there might still be some phonetic and typographical errors. Occasional wrong-word or ``sound-alike substitutions may have occurred due to the inherent limitations of voice recognition software. These areas are purely typographical due to imperfections of the software programs and do not reflect any compromise in the patient's medical care. Please read the chart carefully and recognize, using context, where these substitutions have occurred. Plan discussed with: Patient NYHA 2 Physical activity limitations: NA Date of Service: Jun 29, 2025 Billing Provider: XAVIER GONZALEZ Cardiology Common Codes: 39089-NNTPXGL INP/OBS CARE (High) Cardiology Consultation Codes: 61595-[id number] CONSULT <45MIN XAVIER GONZALEZ Jun 29, 2025 17:37 DICTATED BY:XAVIER GONZALEZ DICTATED DATE/TIME:06/29/25 1737 ELECTRONICALLY SIGNED BY:XAVIER GONZALEZ 06/29/25 1737 ELECTRONICALLY CO-SIGNED BY: Operations or Procedures [facility] [address] [place] [employer] [place] [id number] Ph: [phone] DIAGNOSTIC IMAGING Diagnostic Imaging Report : [id number] Signed PATIENT: RYLAN COWANCCT: [id number] UNIT: [id number] : 1975 LOC: [facility] AGE / SEX: 49 / F ADM STATUS: DIS IN SERVICE 08 ORDERING PHYSICIAN: CHARLENE MOORE PROCEDURE(s): ECIDC - ECHO 2D MODE CARDIAC DOP REASON: rule out structural heart diease ORDER NUMBER(s): [id number], ACCESSION NUMBER(s): [id number] APPROVED REPORT EXAM: Two-dimensional and M-mode echocardiogram with Doppler and color Doppler. Blood Pressure: 153/78 mmHg INDICATION Rule out structural heart disease RISK FACTORS Obesity: Height: 5', Weight: 233 DIMENSIONS LVDd 4.5 (3.8-5.7cm) LA (2D) 4.0 (1.9-4.0cm) Aortic Root 3.8 (2.0- 3.7cm) LVDs 3.1 (2.5-4.0cm) LA (MM) (1.9-4.0cm) Aortic Cusp Exc 1.8 (1.5- 2.0cm) EF (%) 60.0 (55-70%) Rt. Atrium 3.8 (1.9-4.0cm) Asc. Aorta cm IVSd 1.3 (0.7-1.1cm) RV (D) (1.8-2.4cm) PWd 1.2 (0.7-1.1cm) Mitral Valve Mitral Mitral Stenosis E wave 0.70m/s MV Mean GR. mmHg A wave 0.90m/s MV Peak GR. mmHg E/A ratio 0.8 2D MVA cm2 Aortic Valve Aortic Valve Aortic Stenosis V1 1.00m/s AO Mean GR. 4mmHg V2 1.20m/s AO Peak GR. 6mmHg LVOT Diameter 2.2 (1.8-2.4cm) Doppler ZEB 3.17cm2 Pulmonic Valve V2 0.80m/s Tricuspid Valve TR Velocity 2.00m/s RVSP 20mmHg Conclusion lvef 60% normal rv function normal atria no severe valve abnormalities noted SIGNED BY: STEPHANI COLLIER MD SIGNED DATE/TIME: 07/01/25 0050 CC: Condition at Discharge: Undetermined Final Diagnosis/Problems List # acute chest pain likely due to musculoskeletal pain/pericarditis # acute chest pain, ruled out acute coronary syndrome # bilateral leg edema # hypertension # hyperlipidemia # history of TIA # obesity # vitamin-D deficiency Discharge Disposition: AMA Discharge Instruct/Medications Follow Up/Referral: Patient left AMA Medications: Patient left AMA Scheduled Amlodipine Besylate (Amlodipine Besylate), 1 TAB PO DAILY, (Reported) Aspirin (Aspirin Low Dose), 1 TAB PO DAILY, (Reported) Atorvastatin Calcium (Atorvastatin Calcium), 1 TAB PO DAILY, (Reported) Atorvastatin Calcium (Atorvastatin Calcium), 1 TAB PO DAILY, (Reported) Chlorthalidone (Chlorthalidone), 1 TAB PO DAILY, (Reported) Gabapentin (Gabapentin), 1 CAP PO DAILY, (Reported) Losartan Potassium (Losartan Potassium), 1 TAB PO DAILY, (Reported) Pantoprazole Sodium Sesquihydr (Pantoprazole Sodium), 1 TAB PO DAILY, (Reported) Miscellaneous Medications Vilazodone HCl (Vilazodone Hydrochloride), 1 PO, (Reported) Discharge Statement: "Patient was advised to return to the ER or call 911 if any headaches, dizziness, shortness of breath, chest pain, abdominal pain, bleeding, fevers, or worsening of medical condition. Patient was counseled about treatment plan, medications, possible side effects, patientverbalized understanding. All questions were answered to the best of my ability. This discharge took greater then 30 minutes in planning, reviewing documentation, counseling the patient, and discussing with other team members." ASSESSMENT ASSESSMENT Assessment Date of Service: Jun 30, 2025 Billing Provider: KETURAH NOLAN MD Common Visit Codes: 64675-MLX/OBS DISCH DAY >30min HAZEL MAN Jul 01, 2025 07:16 KETURAH NOLAN MD Jul 04, 2025 02:04
== END 2025-06-30 21:20 | disposition left against medical advice (07) | DRG 203 ==
LOC: ER 21:52 → OVERFLOW 06-29 01:22 → EAST 06-29 21:28 → TELE-EAST 06-29 21:59
PROVIDERS: ADMIT Student in an Organized Health Care Education/Training Program; ATTEND Student in an Organized Health Care Education/Training Program
DX: R07.89 Other chest pain (principal); I31.9 Disease of pericardium, unspecified; E55.9 Vitamin D deficiency, unspecified; Z53.29 Procedure and treatment not carried out because of patient's decision for other reasons; I10 Essential (primary) hypertension; E78.5 Hyperlipidemia, unspecified; J30.2 Other seasonal allergic rhinitis; I1A.0 Resistant hypertension; E66.813 Obesity, class 3; Z86.73 Personal history of transient ischemic attack (TIA), and cerebral infarction without residual deficits; Z68.41 Body mass index [BMI] 40.0-44.9, adult; Z82.49 Family history of ischemic heart disease and other diseases of the circulatory system; Z82.3 Family history of stroke; Z79.899 Other long term (current) drug therapy; Z79.82 Long term (current) use of aspirin
CPT/HCPCS: 36415; 71045; 78452; 80048; 80053; 80061; 80076; 80307; 81001; 82306; 82607; 82746; 83036; 83735; 83880; 84443; 84484; 84702; 85025; 85610; 85652; 86141; 87086; 87426; 87804; 93005; 93017; 93306; 93970; 99291; G0378